=== PATIENT | female | born 1935 | race Caucasian/White ===

== ENCOUNTER 2019-09-27 11:49 | Outpatient (CLI) | payer MEDICARE, SELFPAY ==
[2019-09-27 12:52] LABS: Basophils # 0.1 10^3/uL (0.0-0.1); Basophils % 1.2 %; Eosinophils # 0.2 10^3/uL (0.0-0.8); Eosinophils % 3.1 %; Hematocrit 39.5 % (37.0-47.0); Hemoglobin 12.8 g/dL (11.5-15.3); Lymphocytes # 1.1 10^3/uL (0.8-4.8); Lymphocytes % 16.6 %; Mean Corpuscular HGB Conc 32.4 g/dL (30.0-36.0); Mean Corpuscular Hemoglobin 29.9 pg (28.0-34.0); Mean Corpuscular Volume 92.3 fL (81-99); Mean Platelet Volume 12.5 fL (7.4-10.4); Monocytes # 0.5 10^3/uL (0.2-0.9); Monocytes % 7.9 %; Neutrophils # 4.55 10^3/uL (1.8-7.7); Neutrophils % 70.9 %; Nucleated Red Blood Cells % 0 %; Platelet Count 199 10^3/cmm (130-400); Red Blood Count 4.28 10^6/uL (4.1-5.3); Red Cell Distribution Width 12.2 % (12.1-15.1); White Blood Count 6.4 10^3/uL (4.0-10.0)
[2019-09-27 13:11] LABS: Alanine Aminotransferase 11 U/L (0-33); Albumin Level 3.9 g/dL (3.5-5.2); Alkaline Phosphatase 53 IU/L (35-105); Anion Gap 12.5 (5-19); Aspartate Amino Transferase 18 U/L (0-32); Blood Urea Nitrogen 9 mg/dL (8-23); Calcium 9.5 mg/dL (8.5-10.5); Carbon Dioxide 25 mmol/L (22-29); Chloride 102 mmol/L (98-107); Globulin 3.1 g/dL (1.3-4.6); Glucose 99 mg/dL (65-115); Osmolality Calculated 278 mOsm/kg (285-295); Potassium 3.5 mmol/L (3.5-5.1); Sodium 136 mmol/L (136-145); Total Bilirubin 0.3 mg/dL (0.15-1.2)
--- NOTE | 2019-10-01 11:27 | ONC FU_ITS ---
Dr. Mann Patient Follow-Up Note Patient: Dena Anderson Unit #: [id number]: [id number] Dicatated By: Jayesh Mann M.D.Date of Visit:Sep 27, 2019 Onc Med Follow-up/Prog Note Chief Complaint: Breast cancer. 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 The primary tumor was located in the mid chest wall. It was reported to measure 3 x 5 cm. She underwent surgical resection in August 2007. The mass was completely excised off of the sternum and from the pectoralis muscles and breasts bilaterally, as well as from the upper abdominal wall. 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 She was given adjuvant chemotherapy with 6 cycles of FEC, which she completed in January 2008. She was then given prophylactic chest wall radiation, which she completed in April 2008 to a total dose of 6000 cGy. She then started hormonal therapy with Femara. As of November 2010 her treatment was changed to anastrozole for insurance purposes. She also had been receiving Zometa infusions at 6-month intervals, as she did have significant osteopenia on her baseline bone density study. Her repeat DEXA scanon 12/11/2015 showed T score -2.6 in the lumbar spine, -2.5 in the left femur, and -2.6 in the right femur. In December 2015 I did opt to change her treatment to Prolia, as she had completed 5 years of treatment on Zometa. Her repeat bone density on 04/16/2018 still showed evidence of osteoporosis in the lumbar spine, T score -2.7. It had declined slightly compared to the previous study from November 2015. She continued the Prolia through December 2017, but with that treatment she did experience pain at the injection site, and had of her follow-up visit in June 2018 she had opted to stop the Prolia. However, she was doing well clinically with no evidence of recurrence of the breast cancer. She continued hormonal therapy with anastrozole 1 mg daily. She has been in very good general health. Her medical illnesses otherwise have been limited to hypertension and chronic anxiety. 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 She is a nonsmoker. INTERIM HISTORY: She is seen for a scheduled visit. She has been feeling good generally. She has good energy and activity tolerance. ECOG score is 0. Her appetite is good. Her weight is down a few pounds. She has no fever, night sweats, or hot flashes. She recently has had a sore in her nose. She has not had sore mouth or throat. She has no shortness of breath, cough, or chest pain. She has no GI or complaints. 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 She has no other joint or bone pain. She has no focal neurologic symptoms. Medications: Arimidex 1 (1 mg) Tablet Oral daily, Aspirin 1 Tablet (of 81 mg) Oral daily, Ergocalciferol 1 (66562 Units) Capsule Oral q 30 days, Norvasc 1 (5 mg) Tablet Oral daily, Xanax 1 (0.5 mg) Tablet Oral t.i.d. PRN Allergies: Alcohol Review of Systems: Constitutional - She has good energy and activity tolerance. Appetite is good. Her weight is down 4 pounds. No fever, night sweats, or hot flashes. ECOG score is 0, ENMT - No sinus congestion/drainage. She does complain that she has a sore in her nose. No mouth sores. No sore throat or difficulty swallowing, Hematologic/Lymphatic - No abnormal bruising or bleeding, Respiratory - No shortness of breath. No cough. No pleuritic pain or hemoptysis, Cardiovascular - No angina pain. No palpitations, Gastrointestinal - No nausea or vomiting. No heartburn or acid reflux. No diarrhea or constipation. No blood in the stool or black stools, Genitourinary (F) - No dysuria or hematuria. No urinary frequency. No urgency or incontinence, Musculoskeletal - She has some arthritis change in her right middle finger, but she has no pain with it, and she has no other joint or bone pain, Integumentary - No skin rash, Neurologic - No headache or dizziness. No numbness or tingling. No other focal neurologic symptoms, Psychiatric - No anxiety or depression. No insomnia. Vital Signs: Performed on Sep 27, 2019 13:32 Height - 63.00 in Weight - 146.4 lbs (LOW) BSA - 1.69 sq.m BMI - 25.93 Temperature - 98.3 F (LOW) Pulse - 121 /min (HIGH) Respiration - 18 /min BP - 150/77 mm(hg) (HIGH) O2 Sat - 97 % Pain - 0 Physical Examination: Constitutional - She looks good generally, Eyes - Sclerae nonicteric. Conjunctivae clear, ENMT - There is a small, inflammatory appearing mucosal lesion just within the right nostril. There are no lesions noted in the oral cavity, Hematologic/Lymphatic - There is no cervical or clavicular adenopathy noted, Respiratory - Lungs are clear with good air movement bilaterally, Cardiovascular - Heart rhythm is irregular. There is no murmur, gallop, or rub noted, Breasts - There there is residual telangiectasia in the mid chest wall. There is no evidence of chest wall recurrence. There is no axillary adenopathy noted, Abdomen - Soft. Liver and spleen are not enlarged. There is no abdominal mass or ascites noted and there is no inguinal adenopathy, Extremities - No edema. She has good dorsalis pedis pulses bilaterally, Neurologic - No focal neurologic deficits noted. Lab/Imaging: CBC shows hemoglobin 12.8 g, white blood cell count 6400, and platelet count 199,000. Comprehensive metabolic profile is unremarkable. Impression: 1. 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 It was intitally diagnosed in August 2007 and presumed to be breast primary. The staging, though, was incomplete because the tumor was located in the mid chest wall. There was no evidence of other primary breast lesion or lymph node involvement by clinical evaluation, and there also was no evidence of metastatic disease. 2. Her treatment included surgical excision followed by adjuvant chemotherapy and prophylactic chest wall radiation, completed in April 2008. 3. She has since then remained on adjuvant hormonal therapy, currently with anastrozole. 4. She has evidence of osteoporosis by dexa scan, and she also was found to have vitamin D deficiency. Her other medical illnesses include: 5. Hypertension. 6. Chronic anxiety. Her repeat DEXA scan in April 2018 still showed evidence of osteoporosis in the lumbar spine, T score -2.7. However, as of her follow-up visit in June 2018 she opted to stop the Prolia injections due to pain at the injection site with her December 2017 treatment. During follow-up she has otherwise been doing well clinically. She continues to tolerate the anastrozole with no adverse effects. Thus far there has been no evidence of recurrence of the breast cancer. Plan: She continues hormonal therapy with anastrozole 1 mg daily. Her other medications remain the same. I will just plan to see her again in 1 year. Signed By: Jayesh Mann M.D. <<Signature on File>>
== END 2019-09-27 11:50 | disposition home or self-care (01) ==
LOC: ONCMED 11:51
PROVIDERS: PCP Nurse Practitioner Family; Visit Provider Internal Medicine Medical Oncology
DX: C50.919 Malignant neoplasm of unspecified site of unspecified female breast (principal); Z17.0 Estrogen receptor positive status [ER+]; M81.0 Age-related osteoporosis without current pathological fracture; Z79.818 Long term (current) use of other agents affecting estrogen receptors and estrogen levels
CPT/HCPCS: 80053; 85025; 99214

== ENCOUNTER 2019-12-18 09:46 | Emergency (ER) | payer MEDICARE, SELFPAY ==
[2019-12-18 09:53] VITALS: BP 134/92; PULSE 126; RESP 16; TEMP 36.5; O2SAT 96; BMI 24.7
--- NOTE | 2019-12-18 10:04 | W.ED.SKABFB ---
Documented by User: RAJENDRA Subramanian 12/18/19 17:37 HPI - Skin/Abscess/Foreign Bdy General: Chief complaint: Skin/Abscess/Foreign Body Stated complaint: Spider bite behind right knee Time Seen by Provider: 12/18/19 09:54 History of Present Illness: HPI narrative: Patient is an 84-year-old female comes to the ED with spider bite behind right knee. Patient says that yesterday she put on some pants that she had worn a long time and she felt a installation tech the back of her right knee. This morning she woke up and it was sore swollen and red on back and knee. She also has some ecchymosis around the area where spider bite happened. No visible drainage or ulceration. Denies any chest pain, shortness of breath, palpitations, lightheadedness, abdominal pain, nausea/vomiting, bladder or bowel symptoms. Associated symptoms: Deny chills, fever(s), nausea or vomiting Review of Systems Const: Denies: fever(s), chills or fatigue Eyes: Denies: change in vision or eye discomfort ENMT: Denies: throat pain, odynophagia, nasal discharge or nasal congestion Card: Denies: chest pain, palpitations, edema, swelling of feet/ankles, dyspnea on exertion or orthopnea Resp: Denies: dyspnea, productive cough or non-productive cough GI: Denies: abdominal pain, nausea, vomiting, diarrhea, constipation or hematochezia : Denies: flank pain, dysuria or hematuria Musc: Denies: neck pain, back pain or extremity swelling Skin/Breast: Reports: new lesions (Right posterior knee redness and swelling after spider bite.); Denies: rash Neuro: Denies: headache(s), numbness in extremities or weakness in extremities Physical Exam Const: COMMON NORMALS: no acute distress, patient oriented x3, healthy appearing and alert GENERAL APPEARANCE: cooperative and comfortable HENMT: COMMON NORMALS: normocephalic HEAD & SCALP: normocephalic MOUTH: Normal oral and palatal mucosa present THROAT: posterior oropharynx normal and uvula midline Eye: COMMON NORMALS: Equal, round and reactive pupils present PUPIL: Yes Equal, round and reactive pupils present Neck/C-Spine: COMMON NORMALS: supple GENERAL: Yes normal visual inspection Resp: COMMON NORMALS: normal respiratory effort, No retractions, No use of accessory muscles and clear to auscultation bilaterally AUSCULTATION: clear to auscultation bilaterally Cardio: COMMON NORMALS: S1 normal heart sound present, S2 normal heart sound present, No gallops present (Cardio), No clicks present (Cardio), No murmurs present (Cardio) and Peripheral pulses 2+ throughout RATE: tachycardic (120-130) RHYTHM: abnormal rhythm irregularly irregular HEART SOUNDS: S1 normal heart sound present and S2 normal heart sound present PERIPHERAL PULSES: Peripheral pulses 2+ throughout GI: COMMON NORMALS: Normal to inspection, nondistended, normoactive bowel sounds present, Soft to palpation, non-tender and no masses PALPATION: Yes Soft to palpation : COMMON NORMALS: Yes no CVA tenderness BLADDER/KIDNEY EXAM: Yes no CVA tenderness Back/Pelvis: COMMON NORMALS: no CVA tenderness Extremity: NARRATIVE EXTREMITY EXAM: On posterior aspect of the right knee patient has small half a centimeter area of ecchymosis with surrounding, edema, erythema, warmth and tenderness. No visible drainage or ulcer seen. Exam findings suspicious of spider bite with possible cellulitis setting then. GENERAL: Yes normal exam except as noted Neuro: COMMON NORMALS: patient oriented x3 and moves all extremities SENSORIUM/ORIENTATION: Yes alert Skin: NARRATIVE SKIN EXAM: On posterior aspect of the right knee patient has small half a centimeter area of ecchymosis with surrounding, edema, erythema, warmth and tenderness. No visible drainage or ulcer seen. Exam findings suspicious of spider bite with possible cellulitis setting then. GENERAL SKIN EXAM: dry skin Course Vital Signs: Vital signs: Vital Signs Temperature 97.7 F 12/18/19 09:53 Pulse Rate 114 H 12/18/19 11:00 Respiratory Rate 18 12/18/19 11:00 Blood Pressure 133/83 12/18/19 11:00 Pulse Oximetry 98 12/18/19 11:00 MDM - Skin/Abscess/Foreign Bdy MDM Narrative: Medical decision making narrative: I discussed this patient with RAJENDRA Subramanian. She came in for what she believes is an insect bite or spider bite on the back of her leg. This occurred after putting pants on that she had worn in some time. She felt pinch and now has an area of redness and swelling. On exam she is noted to have a heart rate in the 120s. She has been told in the past that she had an irregular heart rate and she refused an EKG or any lab work-up. She states that she just wants an antibiotic and to be discharged. She seems entirely competent to make her own decisions. She seems to understand the reasons that we would like to pursue these abnormal vital signs. She agrees to follow-up and to return if worse in any way. I stressed to the patient the importance of getting further work-up due to her tachycardia. She refused and says she wants to go to her PCP for any further evaluation. Patient signed AMA form before discharge. I told patient to call PCP in the morning to discuss elevated heart rate. She was discharged with a prescription for clindamycin and a Medrol Dosepak. I also placed an order with case management for patient to be referred to wound care clinic. Discharge Plan Discharge Patient Disposition: Home Clinical Impression: Accidental spider bite Cellulitis Qualifiers: Site of cellulitis: extremity Site of cellulitis of extremity: lower extremity Laterality: right Qualified Code(s): L03.115 - Cellulitis of right lower limb Condition: Stable Prescriptions: New clindamycin HCl 150 mg capsule 300 mg PO QID 7 Days Qty: 56 RF: 0 Medrol (Jovanni) 4 mg tablets,dose pack See Rx Instructions .ROUTE .COMPLEX Qty: 21 RF: 0 Discharge Orders: Discharge Order (Routine); Ordered 12/18/19 Ordered By: Amol Zeng Referrals: Deyanira Saul NP [Primary Care Provider] - Discharge Diet: Regular Discharge Activity: Increase activity as tolerated Patient Instructions: Cellulitis (ED), Brown Recluse Spider Bite (ED) Activity Restrictions/Additional Instructions: Call primary care doctor's office tomorrow. Patient needs labs performed CBC CMP, EKG. Patient had elevated heart rate of 120-130 range. take medications as prescribed. Take [id number] Tylenol Motrin for pain. Return to the ER or your medical provider if condition worsens. Please read and understand discharge instructions. If any questions, please ask. Discharge Date/Time: 12/18/19 11:05 Coding Level of Care Code ED Nurse Outreach Case Manager for Chg Fwd Exam Comprehensive Documented by User: Ana Pena MD 12/22/19 07:11 HPI - Skin/Abscess/Foreign Bdy General: Chief complaint: Skin/Abscess/Foreign Body Stated complaint: Spider bite behind right knee Time Seen by Provider: 12/18/19 09:54 Course ED course: I discussed this patient with RAJENDRA Subramanian. She came in for what she believes is an insect bite or spider bite on the back of her leg. This occurred after putting pants on that she had worn in some time. She felt pinch and now has an area of redness and swelling. On exam she is noted to have a heart rate in the 120s. She has been told in the past that she had an irregular heart rate and she refused an EKG or any lab work-up. She states that she just wants an antibiotic and to be discharged. She seems entirely competent to make her own decisions. She seems to understand the reasons that we would like to pursue these abnormal vital signs. She agrees to follow-up and to return if worse in any way. Vital Signs: Vital signs: Vital Signs Temperature 97.7 F 12/18/19 09:53 Pulse Rate 114 H 12/18/19 11:00 Respiratory Rate 18 12/18/19 11:00 Blood Pressure 133/83 12/18/19 11:00 Pulse Oximetry 98 12/18/19 11:00 Discharge Plan Discharge Patient Disposition: Home Clinical Impression: Accidental spider bite Cellulitis Qualifiers: Site of cellulitis: extremity Site of cellulitis of extremity: lower extremity Laterality: right Qualified Code(s): L03.115 - Cellulitis of right lower limb Condition: Stable Prescriptions: New clindamycin HCl 150 mg capsule 300 mg PO QID 7 Days Qty: 56 RF: 0 Medrol (Jovanni) 4 mg tablets,dose pack See Rx Instructions .ROUTE .COMPLEX Qty: 21 RF: 0 Discharge Orders: Discharge Order (Routine); Ordered 12/18/19 Ordered By: Amol Zeng Referrals: Deyanira Saul NP [Primary Care Provider] - Discharge Diet: Regular Discharge Activity: Increase activity as tolerated Patient Instructions: Cellulitis (ED), Brown Recluse Spider Bite (ED) Activity Restrictions/Additional Instructions: Call primary care doctor's office tomorrow. Patient needs labs performed CBC CMP, EKG. Patient had elevated heart rate of 120-130 range. take medications as prescribed. Take [id number] Tylenol Motrin for pain. Return to the ER or your medical provider if condition worsens. Please read and understand discharge instructions. If any questions, please ask. Discharge Date/Time: 12/18/19 11:05 Coding Level of Care Code ED Nurse Outreach Case Manager for Chg Fwd Exam Comprehensive
[2019-12-18 11:00] VITALS: BP 133/83; PULSE 114; RESP 18; O2SAT 98
--- NOTE | 2019-12-19 10:02 | DCPLANNER ---
dental manager had message to schedule a follow up appointment for patient with Wound Care. dental manager called the Wound Care clinic, spoke with Cassie, a follow up appointment was scheduled for December at 1:[address] Pierson. dental manager called patient and gave patient the appointment information, patient stated that she was not told that she needed a follow up appointment with Wound Care, and that she is feeling much better and she does not want the follow up appointment. dental manager called Wound Care back, spoke with Krystal, and cancelled the appointment.
== END 2019-12-18 11:05 | disposition home or self-care (01) ==
PROVIDERS: Emergency Provider Physician Assistant; PCP Nurse Practitioner Family
DX: T63.301A Toxic effect of unspecified spider venom, accidental (unintentional), initial encounter (principal); L03.115 Cellulitis of right lower limb
CPT/HCPCS: 12345; 99281; 99282

== ENCOUNTER 2021-06-04 14:48 | Outpatient (CLI) | payer MEDICARE, SELFPAY ==
--- NOTE | 2021-06-04 15:06 | MM_ITS ---
WS: [id number] BILATERAL 3D TOMOSYNTHESIS DIGITAL DIAGNOSTIC MAMMOGRAPHY WITH CAD CLINICAL INFORMATION: HX OF BREAST CA COMPARISON: May 30, 2020 TECHNIQUE: Bilateral CC, MLO, and ML views. FINDINGS: The breasts are composed of heterogeneous fibroglandular density, which can limit the detection of sm all underlying mass lesions. Nodular breast tissue bilaterally similar in appearance. Vascular calcif ication. Lucent centered and punctate calcifications. No suspicious focal mass, asymmetry, calcifications, or architectural distortion. No evidence of yaneli gnancy. MM/[id number] IMPRESSION: BI-RADS: 2-Benign FOLLOW UP: 1 Year Follow-up Recommend return to annual diagnostic mammography.
== END 2021-06-04 14:49 | disposition home or self-care (01) ==
LOC: RAD 14:53
PROVIDERS: PCP Internal Medicine Gastroenterology; Visit Provider Internal Medicine Medical Oncology
DX: Z85.3 Personal history of malignant neoplasm of breast (principal)
CPT/HCPCS: 77062

== ENCOUNTER 2021-11-26 12:41 | Oncology outpatient (recurring) (ONCR) | payer MEDICARE, SELFPAY ==
[2021-11-26 13:47] LABS: Basophils % 0.7 %; Eosinophils # 0.1 10^3/uL (0.0-0.8); Hematocrit 40.6 % (37.0-47.0); Hemoglobin 13.7 g/dL (11.5-15.3); Lymphocytes # 1.1 10^3/uL (0.8-4.8); Lymphocytes % 18.6 %; Mean Corpuscular HGB Conc 33.7 g/dL (30.0-36.0); Mean Corpuscular Hemoglobin 31.2 pg (28.0-34.0); Mean Corpuscular Volume 92.5 fl (81-99); Mean Platelet Volume 11.9 fL (7.4-10.4); Monocytes # 0.5 10^3/uL (0.2-0.9); Monocytes % 7.9 %; Neutrophils # 4.23 10^3/uL (1.8-7.7); Neutrophils % 71.5 %; Nucleated Red Blood Cells % 0 %; Platelet Count 223 10^3/cmm (130-400); Red Blood Count 4.39 10^6/uL (4.1-5.3); Red Cell Distribution Width 12.1 % (12.1-15.1); White Blood Count 5.9 10^3/uL (4.0-10.0)
[2021-11-26 15:01] LABS: 25 Hydroxy Vitamin D 27 ng/mL (30-100); Alanine Aminotransferase 10 U/L (0-33); Alkaline Phosphatase 56 U/L (35-105); Anion Gap 14.7 (5-19); Aspartate Amino Transferase 16 U/L (0-32); Blood Urea Nitrogen 12 mg/dL (8-23); Calcium 10.6 mg/dL (8.5-10.5); Carbon Dioxide 26 mmol/L (22-29); Chloride 99 mmol/L (98-107); Globulin 3.2 g/dL (1.3-4.6); Glucose 97 mg/dL (65-115); Osmolality Calculated 282 mOsm/kg (285-295); Potassium 3.7 mmol/L (3.5-5.1); Sodium 136 mmol/L (136-145); Thyroid Stimulating Hormone 1.22 uIU/mL (0.27-4.20); Total Bilirubin 0.8 mg/dL (0.15-1.2); Total Protein 7.2 g/dL (6.6-8.7)
[2021-11-26 16:35] LABS: Vitamin B12 217 pg/mL (232-1245)
== END 2021-12-16 23:59 | disposition home or self-care (01) ==
PROVIDERS: PCP Family Medicine; Visit Provider Internal Medicine Medical Oncology
DX: Z08 Encounter for follow-up examination after completed treatment for malignant neoplasm (principal); Z85.3 Personal history of malignant neoplasm of breast; D51.9 Vitamin B12 deficiency anemia, unspecified; E55.9 Vitamin D deficiency, unspecified; L98.9 Disorder of the skin and subcutaneous tissue, unspecified; Z92.21 Personal history of antineoplastic chemotherapy; Z92.3 Personal history of irradiation; Z79.899 Other long term (current) drug therapy
CPT/HCPCS: 36415; 80053; 82306; 82607; 84443; 85025; 99214

== ENCOUNTER 2022-03-05 15:48 | Oncology outpatient (recurring) (ONCR) | payer MEDICARE, SELFPAY | END 2022-03-18 23:59 | disposition home or self-care (01) | PROVIDERS: PCP Family Medicine; Visit Provider Internal Medicine Medical Oncology | DX: Z08 Encounter for follow-up examination after completed treatment for malignant neoplasm (principal); Z85.3 Personal history of malignant neoplasm of breast; D51.9 Vitamin B12 deficiency anemia, unspecified; E55.9 Vitamin D deficiency, unspecified; N63.13 Unspecified lump in the right breast, lower outer quadrant; J34.89 Other specified disorders of nose and nasal sinuses; Z86.19 Personal history of other infectious and parasitic diseases; Z92.21 Personal history of antineoplastic chemotherapy; Z92.3 Personal history of irradiation | CPT/HCPCS: 99214 ==

== ENCOUNTER 2022-04-03 12:27 | Oncology outpatient (recurring) (ONCR) | payer MEDICARE, SELFPAY ==
--- NOTE | 2022-04-03 13:01 | MM_ITS ---
WS: [id number] BILATERAL 3D TOMOSYNTHESIS DIGITAL DIAGNOSTIC MAMMOGRAPHY WITH CAD CLINICAL INFORMATION: yearly follow up. History of breast cancer RIGHT breast sternum. COMPARISON: June 04, 2021 TECHNIQUE: Bilateral CC, MLO, and ML views. FINDINGS: The breasts are composed of heterogeneous fibroglandular density, which can limit the detection of sm all underlying mass lesions. Vascular calcification. Punctate and lucent centered calcifications. Nodular bilateral breast tissue LEFT greater than RIGHT is similar in appearance compared to previous . There is a new ovoid parenchymal lesion LEFT breast measuring 1.1 x 1.3 cm new since the prior exam ination near the 1 to 2:00 position posteriorly near the chest wall. Ultrasound described below. ULTRASOUND BREAST BILATERAL TECHNIQUE: Ultrasound bilateral breast focused area of concern. CLINICAL INFORMATION: yearly follow up FINDINGS: Ultrasound LEFT breast at the 1:00 position 3 cm from the nipple. There is a 1.1 x 0.9 x 0.5 cm hypoe choic solid lesion which corresponds to the lesion seen on mammography. This has a suspicious appeara nce and is taller than wide on some images. This is new since the prior mammogram. Recommend further evaluation with ultrasound-guided biopsy. Ultrasound RIGHT breast in the area of palpable concern at the 10:00 position. In the area of concern , there is an echogenic oblong lesion which corresponds to the palpable abnormality. 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 No other suspicious abnormalities in this area. This lesion measures approximately 8.5 x 2.4 x 8.4 CM. MM/[id number] IMPRESSION: BI-RADS: 4-Suspicious Finding-Biopsy Should Be Considered FOLLOW UP: US Guided Biopsy Recommended RECOMMEND ULTRASOUND-GUIDED BIOPSY OF THE 1:00 LESION.
== END 2022-04-15 23:59 | disposition home or self-care (01) ==
LOC: RAD 12:30 → ONCMED 04-14 06:54
PROVIDERS: PCP Family Medicine; Visit Provider Internal Medicine Medical Oncology
DX: Z85.3 Personal history of malignant neoplasm of breast; R92.8 Other abnormal and inconclusive findings on diagnostic imaging of breast
CPT/HCPCS: 76642; 77062; G0279

== ENCOUNTER 2022-05-05 12:54 | Outpatient (CLI) | payer MEDICARE, SELFPAY ==
--- NOTE | 2022-05-05 13:45 | US_ITS ---
WS: [id number] ULTRASOUND-GUIDED LEFT BREAST BIOPSY CLINICAL INFORMATION: abnormal breast ultrasound COMPARISON: April 03, 2022 FINDINGS: The procedure including risks, benefits, and complications were discussed with the patient who agreed to proceed. Using sterile technique patient was prepped and draped in the usual sterile fashion. Aft er 1% lidocaine utilizing real-time ultrasound guidance 5 14-gauge cores were obtained of the LEFT br east lesion at the 1 o'clock position. Subsequently a titanium clip was placed in the biopsy cavity. No immediate complications. Pathology demonstrates Fragments of benign breast tissue with stromal sclerosis. No malignancy identified. US/[id number] IMPRESSION: 1. Uncomplicated ultrasound-guided LEFT breast biopsy. 2. The pathology demonstrates benign breast tissue with stromal sclerosis. No malignancy identified. BI-RADS: 2-Benign FOLLOW UP: 1 Year Follow-up
== END 2022-05-05 12:55 | disposition home or self-care (01) ==
LOC: RAD 12:56
PROVIDERS: PCP Family Medicine; Visit Provider Internal Medicine Medical Oncology
DX: N63.21 Unspecified lump in the left breast, upper outer quadrant (principal); N64.89 Other specified disorders of breast
CPT/HCPCS: 19083; 88305

== ENCOUNTER → 2022-06-17 13:00 | Outpatient (BNVA) | payer MEDICARE, SELFPAY | PROVIDERS: PCP Family Medicine; Visit Provider Dermatology | DX: L57.0 Actinic keratosis (principal); L82.1 Other seborrheic keratosis; L81.4 Other melanin hyperpigmentation | CPT/HCPCS: 99213 ==

== ENCOUNTER 2022-10-27 11:09 | Emergency (ER) | payer MEDICARE, SELFPAY ==
[2022-10-27 11:16] VITALS: BP 153/81; PULSE 86; RESP 22; TEMP 36.8; O2SAT 91; BMI 26.2
--- NOTE | 2022-10-27 11:36 | ED_ITS ---
HPI - Fall General: Chief Complaint: Fall Stated Complaint: fall, back pain Time Seen by Provider: 10/27/22 11:18 Source: patient Mode of arrival: ambulatory History of Present Illness: This 86-year-old female presents to the ER for evaluation of buttock pain that started following a fall on Thursday (2 days ago). Patient was pulling some luo when she fell straight on her buttocks. She experiences no pain when she is sitting still but pain is aggravated by getting up, leaning forward or laying in bed. She denies head injury or loss of consciousness. She wants to be tested for UTI because she has been battling with E. coli for a year. Otherwise, she has no fever, dysuria, nausea, vomiting or any signs of systemic infection. Associated symptoms-after fall: Denies chest pain, headache(s), lightheadedness or neck pain Review of Systems Const: Denies: chills, body aches or change in appetite Eyes: Denies: change in vision or eye discharge ENMT: Denies: throat pain, dental pain or nasal discharge Card: Denies: chest pain or lightheadedness : Denies: dysuria Musc: Reports: back pain; Denies: neck pain Neuro: Denies: headache(s) or weakness in extremities Psych: Denies: depression [place]/Lymph: Denies: easy bruising All/Imm: Denies: urticaria, tongue swelling or facial swelling PFSH ED PFSH: Medical History Anxiety Breast cancer Fatigue HTN (hypertension) Osteoporosis Vitamin B12 deficiency Vitamin D deficiency Social History Smoking and tobacco status: never smoked Alcohol intake: never Substance/Drug Use: never Physical Exam Const: COMMON NORMALS: no acute distress, patient oriented x3, no limitations and alert HENMT: COMMON NORMALS: normocephalic HEAD & SCALP: normocephalic Eye: COMMON NORMALS: EOMs intact bilaterally Neck/C-Spine: COMMON NORMALS: full ROM and supple Chest: COMMONS NORMALS: normal inspection of the chest Resp: COMMON NORMALS: normal respiratory effort, No retractions, No use of accessory muscles and clear to auscultation bilaterally AUSCULTATION: clear to auscultation bilaterally Cardio: COMMON NORMALS: regular rate, regular rhythm and No murmurs present (Cardio) RATE: regular rate RHYTHM: regular rhythm GI: COMMON NORMALS: Normal to inspection, nondistended, normoactive bowel sounds present and non-tender : COMMON NORMALS: Yes no CVA tenderness BLADDER/KIDNEY EXAM: Yes no CVA tenderness Back/Pelvis: COMMON NORMALS: no CVA tenderness and no thoracic nor lumbar tenderness OTHER: There is no tenderness on palpation of the thoracic, lumbar or sacral region. Pain is only aggravated by certain movement. There is no distal neurovascular deficit. Extremity: GENERAL: Yes normal exam except as noted Neuro: COMMON NORMALS: patient oriented x3 and no focal motor deficits SENSORIUM/ORIENTATION: Yes alert Psych: COMMON NORMALS: mental status grossly normal and cooperative Course Vital Signs: Vital signs: Vital Signs Temperature 98.3 F 10/27/22 11:16 Pulse Rate 86 10/27/22 11:16 Respiratory Rate 22 H 10/27/22 11:16 Blood Pressure 153/81 10/27/22 11:16 Pulse Oximetry 91 10/27/22 11:16 Oxygen Delivery Me thod Room Air 10/27/22 11:16 MDM - Fall Medical Decision Making Medical decision making: Patient presents to the ER for evaluation of fall. X-rays are negative for fracture/dislocation. UA is indicative for UTI. She will be discharged home with antibiotics, was advised to maintain adequate fluid intake and to follow-up with her primary care physician. Reasons to return were discussed. Lab Data Laboratory Results Urine Color Yellow (Yellow) 10/27/22 12:15 Urine Appearance Hazy (CLEAR) A 10/27/22 12:15 Urine pH 6 (5-7) 10/27/22 12:15 Ur Specific [place] 1.010 (1.005-1.030) 10/27/22 12:15 Urine Protein Neg (Negative) 10/27/22 12:15 Urine Glucose (UA) Norm (Normal) 10/27/22 12:15 Urine Ketones 1+ (Negative) H 10/27/22 12:15 Urine Blood 2+ (Negative) H 10/27/22 12:15 Urine Nitrate Negative (Negative) 10/27/22 12:15 Urine Bilirubin Neg (Negative) 10/27/22 12:15 Urine Urobilinogen Norm mg/dL (Negative) 10/27/22 12:15 Ur Leukocyte Esterase Negative (Negative) 10/27/22 12:15 Urine RBC Rare /hpf (0-2) 10/27/22 12:15 Urine WBC 0-4 /hpf (0-5) H 10/27/22 12:15 Ur Squamous Epith Cells 0-4 /hpf (0-5) H 10/27/22 12:15 Amorphous Sediment Not Reportable 10/27/22 12:15 Urine Bacteria 3+ /hpf (NONE) H 10/27/22 12:15 Discharge Plan Discharge Patient Disposition: Home Clinical Impression: Fall, Low back sprain, UTI (urinary tract infection) Condition: Stable Prescriptions: New Cipro 500 mg tablet 500 mg PO BID Qty: 10 0RF No Action cholecalciferol (vitamin D3) 25 mcg (1,000 unit) capsule 25 mcg PO DAILY ergocalciferol (vitamin D2) 1,250 mcg (50,000 unit) capsule 1,250 mcg PO Q30D Qty: 10 1RF Rx Instructions: TAKE MID MONTH alprazolam 0.5 mg tablet 0.5 mg PO TID PRN (Reason: anxiety) Qty: 90 5RF alprazolam 0.5 mg tablet 0.5 mg PO TID PRN (Reason: anxiety) Qty: 90 5RF amlodipine 5 mg tablet See Rx Instructions .ROUTE .COMPLEX Qty: 30 3RF Dose Instruction: TAKE ONE TABLET BY MOUTH DAILY Rx Instructions: TAKE ONE TABLET BY MOUTH DAILY Aspir-81 81 mg Tablet,Delayed Release (Dr/Ec) 81 mg PO DAILY Discharge Orders: Discharge ED (Routine); Ordered 10/27/22 Ordered By: Santiago Alvarez Referrals: Arie Thomas [Primary Care Provider] - Patient Instructions: Opioid Safety, Pain Management Activity Restrictions/Additional Instructions: Rest. Take ciprofloxacin as prescribed. Maintain adequate fluid intake. Follow-up with your primary care physician in 3 to 5 days for reevaluation. Return with new or worsening symptoms. Coding Level of Care Code ED [employer] for Jacquelyn Albert
--- NOTE | 2022-10-27 11:44 | XR_ITS ---
WS: [id number] Exam: XR sacrum coccyx min 2V [id number] Date/Time of Exam: 10/27/2022 11:44 AM Reason For Exam: fall No obvious sacrococcygeal fracture. Degenerative change of the SI joints. Osteopenia. IMPRESSION: 1. No obvious sacrococcygeal fracture.
[2022-10-27 12:28] LABS: Glucose Urine UA Norm (Normal); Ketones Urine 1+ (Negative); Protein Urine Neg (Negative); Urine Appearance Hazy (CLEAR); Urine Color Yellow (Yellow); pH Urine 6 (5-7)
[2022-10-27 12:29] LABS: Add Urine Culture? Yes; Add Urine Microscopic? YES; Bacteria Urine 3+ /hpf; Bilirubin Urine Neg (Negative); Blood Urine 2+ (Negative); Leukocyte Esterase Urine Negative (Negative); Nitrate Urine Negative (Negative); RBC Urine RARE /hpf (0-2); Squamous Epithelial Cell Urine 0-4 /hpf (0-5); Urobilinogen Urine Norm (Negative); WBC Urine 0-4 /hpf (0-5)
== END 2022-10-27 14:14 | disposition home or self-care (01) ==
PROVIDERS: Emergency Provider Family Medicine; PCP Family Medicine
DX: S33.5XXA Sprain of ligaments of lumbar spine, initial encounter (principal); N39.0 Urinary tract infection, site not specified; Z79.82 Long term (current) use of aspirin; Z85.3 Personal history of malignant neoplasm of breast; I10 Essential (primary) hypertension; W18.39XA Other fall on same level, initial encounter; R06.02 Shortness of breath; R00.2 Palpitations
CPT/HCPCS: 72220; 81001; 87077; 87086; 87186; 93005; 99214; 99284

== ENCOUNTER → 2022-11-12 13:30 | Outpatient (BNVA) | payer MEDICARE, SELFPAY | PROVIDERS: PCP Family Medicine; Visit Provider Nurse Practitioner Family | DX: M54.42 Lumbago with sciatica, left side; W19.XXXD Unspecified fall, subsequent encounter | CPT/HCPCS: 72100 ==

== ENCOUNTER 2022-12-11 12:38 | Outpatient (CLI) | payer MEDICARE, SELFPAY ==
--- NOTE | 2022-12-11 13:00 | MM_ITS ---
WS: [id number] LEFT 3D TOMOSYNTHESIS DIGITAL MAMMOGRAPHY WITH CAD CLINICAL INFORMATION: 6MFU POST BX HISTORY: 6-month follow-up biopsy. COMPARISON: 04/03/2022 TECHNIQUE: 3 views of the left breast were obtained. FINDINGS: Scattered fibroglandular densities of the left breast. Vascular calcifications. Biopsy marker LEFT br east with stable ovoid nodule. No new abnormalities. Ultrasound is pending. ULTRASOUND BREAST LEFT TECHNIQUE: Ultrasound left breast focused area of concern. CLINICAL INFORMATION: 6MFU POST BX FINDINGS: Ultrasound LEFT breast at the 1 o'clock position 3 cm from the nipple. Again seen is the hypoechoic o void nodule with biopsy clip. 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 10 mm ovoid lesion is stable in appearance today. Recommend return to annual screen mammography. IMPRESSION: MM/[place] [id number] BI-RADS: 2-Benign FOLLOW UP: See Report Recommend return to annual diagnostic mammography.
--- NOTE | 2022-12-11 13:30 | US_ITS ---
WS: [id number] LEFT 3D TOMOSYNTHESIS DIGITAL MAMMOGRAPHY WITH CAD CLINICAL INFORMATION: 6MFU POST BX HISTORY: 6-month follow-up biopsy. COMPARISON: 04/03/2022 TECHNIQUE: 3 views of the left breast were obtained. FINDINGS: Scattered fibroglandular densities of the left breast. Vascular calcifications. Biopsy marker LEFT br east with stable ovoid nodule. No new abnormalities. Ultrasound is pending. ULTRASOUND BREAST LEFT TECHNIQUE: Ultrasound left breast focused area of concern. CLINICAL INFORMATION: 6MFU POST BX FINDINGS: Ultrasound LEFT breast at the 1 o'clock position 3 cm from the nipple. Again seen is the hypoechoic o void nodule with biopsy clip. 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 10 mm ovoid lesion is stable in appearance today. Recommend return to annual screen mammography. IMPRESSION: US/US breast LT limited* [id number] BI-RADS: 2-Benign FOLLOW UP: See Report Recommend return to annual diagnostic mammography.
== END 2022-12-11 12:39 | disposition home or self-care (01) ==
LOC: RAD 12:38
PROVIDERS: PCP Family Medicine; Visit Provider Internal Medicine Medical Oncology
DX: C50.919 Malignant neoplasm of unspecified site of unspecified female breast (principal); R92.8 Other abnormal and inconclusive findings on diagnostic imaging of breast
CPT/HCPCS: 76642; 77061; G0279

== ENCOUNTER 2023-02-04 09:52 | Oncology outpatient (recurring) (ONCR) | payer MEDICARE, SELFPAY ==
[2023-02-04 11:02] LABS: Basophils # 0.1 10^3/uL (0.0-0.1); Eosinophils # 0.1 10^3/uL (0.0-0.8); Eosinophils % 2.2 %; Hematocrit 40.4 % (36-47); Lymphocytes % 16.4 %; Mean Corpuscular HGB Conc 33.4 g/dL (30-55); Mean Corpuscular Hemoglobin 30.1 pg (27-33); Mean Platelet Volume 11.7 fL (7.4-10.4); Monocytes # 0.5 10^3/uL (0.2-0.9); Monocytes % 7.7 %; Neutrophils # 4.31 10^3/uL (1.8-7.7); Neutrophils % 72.4 %; Nucleated Red Blood Cells % 0 %; Platelet Count 212 10^3/cmm (157-399); Red Blood Count 4.49 10^6/uL (3.85-5.65); Red Cell Distribution Width 12.6 % (12.1-15.1); White Blood Count 5.96 10^3/uL (3.29-11.43)
[2023-02-04 11:39] LABS: 25 Hydroxy Vitamin D 35 ng/mL (30-100); Alanine Aminotransferase 10 U/L (0-33); Albumin Level 4.1 g/dL (3.5-5.2); Alkaline Phosphatase 72 U/L (35-105); Anion Gap 10.8 (5-19); Aspartate Amino Transferase 16 U/L (0-32); Blood Urea Nitrogen 13 mg/dL (8-23); Calcium 10.3 mg/dL (8.5-10.5); Carbon Dioxide 28 mmol/L (22-29); Chloride 102 mmol/L (98-107); Globulin 3.1 g/dL (1.3-4.6); Glucose 107 mg/dL (65-115); Osmolality Calculated 285 mOsm/kg (285-295); Potassium 3.8 mmol/L (3.5-5.1); Sodium 137 mmol/L (136-145); Thyroid Stimulating Hormone 1.47 uIU/mL (0.27-4.20); Total Bilirubin 0.7 mg/dL (0.15-1.2); Total Protein 7.2 g/dL (6.6-8.7)
[2023-02-04 15:41] LABS: Vitamin B12 350 pg/mL (232-1245)
== END 2023-02-15 23:59 | disposition home or self-care (01) ==
PROVIDERS: PCP Family Medicine; Visit Provider Internal Medicine Medical Oncology
DX: C50.919 Malignant neoplasm of unspecified site of unspecified female breast (principal); E55.9 Vitamin D deficiency, unspecified; R53.83 Other fatigue; M81.0 Age-related osteoporosis without current pathological fracture; Z79.899 Other long term (current) drug therapy
CPT/HCPCS: 36415; 80053; 82306; 82607; 84443; 85025; 99214

== ENCOUNTER 2023-03-06 14:40 | Outpatient (CLI) | payer MEDICARE, SELFPAY ==
--- NOTE | 2023-03-06 15:00 | XR_ITS ---
WS: [id number] DEXA (DUAL ENERGY X-RAY ABSORPTIOMETRY) Bone mineral density was performed using a Vokle machine. HISTORY: compare to previous; osteoporosis COMPARISON: 04/16/2018 Lumbar spine BMD (L1-L4): 0.766 g/cm2 T score: -3.5 Z score: -1.4 Total hip BMD: Left: 0.652 g/cm2. T score: -2.8 Z score: -0.3 Right: 0.597 g/cm2. T score: -3.3 Z score: -0.7 10 year probability of a major osteoporotic fracture is 27.2%. Compared to the prior study from 04/16/2018. Lumbar spine bone mineral density has decreased by 10.9%. Bilateral hips bone mineral density has decreased by 11.5%. IMPRESSION: OSTEOPOROSIS based upon the WHO classification for females. Significant decrease in bone mineral density within the lumbar spine and hips since the prior study.
== END 2023-03-06 14:41 | disposition home or self-care (01) ==
LOC: RAD 14:41
PROVIDERS: PCP Family Medicine; Visit Provider Internal Medicine Medical Oncology
DX: M81.0 Age-related osteoporosis without current pathological fracture (principal)
CPT/HCPCS: 77080

== ENCOUNTER → 2023-06-04 14:21 | Outpatient (BNVA) | payer MEDICARE, SELFPAY | PROVIDERS: PCP Family Medicine; Visit Provider Nurse Practitioner Family | DX: L57.0 Actinic keratosis (principal); L82.1 Other seborrheic keratosis; L81.4 Other melanin hyperpigmentation; D48.5 Neoplasm of uncertain behavior of skin | CPT/HCPCS: 99214 ==

== ENCOUNTER 2023-08-05 09:50 | Oncology outpatient (recurring) (ONCR) | payer MEDICARE, SELFPAY | END 2023-08-16 23:59 | disposition home or self-care (01) | PROVIDERS: PCP Family Medicine; Visit Provider Internal Medicine Medical Oncology | DX: C50.919 Malignant neoplasm of unspecified site of unspecified female breast (principal); Z79.899 Other long term (current) drug therapy | CPT/HCPCS: 99214 ==

== ENCOUNTER → 2023-11-23 14:11 | Outpatient (BNVA) | payer MEDICARE, SELFPAY | PROVIDERS: PCP Family Medicine; Visit Provider Internal Medicine Cardiovascular Disease | DX: R00.2 Palpitations (principal); I10 Essential (primary) hypertension; R06.02 Shortness of breath | CPT/HCPCS: 99213 ==